=== PATIENT | female | born 1985 | race Caucasian/White ===

== ENCOUNTER 2016-08-13 16:47 | Emergency (ER) | payer OTHER ==
[~2016-08-13] VITALS: Wt 71.0 kg
[2016-08-13] MEDS ORDERED: ACETAMINOPHEN/CODEINE #3 TAB PO ONE (18:00)
[2016-08-13] MEDS ORDERED: IBUPROFEN 600 MG TAB PO ONE (18:00)
--- NOTE | 2016-08-13 18:37 | RADRPT ---
PROCEDURE: Left knee x-ray CLINICAL INDICATION: Pain. TECHNIQUE: AP, lateral and oblique views of the left knee were obtained. COMPARISON: None FINDINGS: There is normal mineralization. No acute fracture or dislocation is seen. There are no significant degenerative changes. There is no joint effusion. There is no significant soft tissue swelling. IMPRESSION: Normal x-ray of the left knee. RPTAT:AAJJ Physician Jacob Date Time Electronically viewed and signed by Cl Bosch Physician on 08/13/2016 18:37 ERASTO/
[2016-08-13] MEDS ORDERED: IBUP-1542 PO (19:15)
--- NOTE | 2016-08-13 19:19 | ERD ---
ER Documentation Chief Complaint Date/Time DATE: 08/13/16 TIME: 19:17 Chief Complaint LEFT KNEE PAIN AFTER FALL TODAY HPI This 30-year-old female complains of left knee pain while sitting today. Pain is in the infrapatellar area. She felt a pop. But no fall or significant awkward movement. She denies fevers, redness, calf swelling, shortness of breath, restricted range of motion or weakness. She initially had some difficulty extending her left knee but now is able although with some discomfort. ROS All systems reviewed and are negative except as per history of present illness. Medications Home Meds Active Scripts Ibuprofen* (Motrin*) 600 Mg Tab, 600 MG PO Q6H Y for PAIN, #20 TAB Prov:MANI CHERRY MD 08/13/16 Allergies Allergies: Coded Allergies: No Known Drug Allergy (Unverified Allergy, Unknown, 05/15/14) PMhx/Soc Medical and Surgical Hx: pt denies Medical Hx, pt denies Surgical Hx History of Surgery: No Hx Neurological Disorder: No Hx Respiratory Disorders: No Hx Cardiac Disorders: No Hx Miscellaneous Medical Probl: No Hx Alcohol Use: No Hx Substance Use: No Hx Tobacco Use: No Physical Exam Vitals Vital Signs Date Time Temp Pulse Resp B/P Pulse Ox O2 Delivery O2 Flow Rate FiO2 08/13/16 16:50 98.0 97 18 128/69 98 Physical Exam Const: [] Alert, [id number] per Head: Atraumatic Eyes: Normal Conjunctiva ENT: Normal External Ears, Nose and Mouth. Neck: Full range of motion..~ No meningismus. Resp: Clear to auscultation bilaterally Cardio: Regular rate and rhythm, no murmurs Abd: Soft, non tender, non distended. Normal bowel sounds Skin: No petechiae or rashes Back: No midline or flank tenderness Ext: No cyanosis, or edema. Is some mild tenderness in the left infrapatellar area. There is no effusion, erythema, warmth, deformities. There is no calf swelling or Homans sign. Neur: Awake and alert Psych: Normal Mood and Affect Results 24 hrs Current Medications Medications (Trade) Dose Ordered Sig/[place] Route PRN Reason Start Time Stop Time Status Last Admin Dose Admin Ibuprofen (Motrin) 600 mg ONCE ONCE PO 08/13/16 18:00 08/13/16 18:01 DC 08/13/16 17:44 Acetaminophen/ Codeine Phosphate (Tylenol No.3) 1 tab ONCE ONCE PO 08/13/16 18:00 08/13/16 18:01 DC 08/13/16 17:44 Procedures/MDM X-ray left knee 3V Interpreted by me: Bones: No fracture Joints: No dislocation Foreign body: None. Impression abnormal left knee x-ray Patient was given ibuprofen and Tylenol 3 for pain. Patient has left knee pain of uncertain etiology, possibly a sprain or tendinitis or possibly a patellar subluxation with normal exam currently. She will discharged home with a prescription of ibuprofen, instructions for ice, instructed to follow-up with primary doctor for possible orthopedic evaluation. There is no evidence of fracture, dislocation, septic arthritis, osteomyelitis, additional emergent conditions the patient should return for fevers, redness, new worsening symptoms. Departure Diagnosis: Primary Impression: Knee injury Encounter type: initial encounter Laterality: left Qualified Code: S89.92XA - Knee injury, left, initial encounter Condition: Stable Patient Instructions: Knee Pain, Uncertain Cause Additional Instructions: X-ray normal. Likely sprain of tendon or muscle. Recommend ice at home. See primary doctor and possible orthopedist for pain next week. Return sooner for fevers, redness, new symptoms MANI CHERRY MD Aug 13, 2016 19:19
[2016-08-13 19:30] VITALS: BP 131/74; PULSE 69; RESP 16
== END 2016-08-13 19:32 | disposition home or self-care (01) ==
LOC: FTE 16:47
DX: S89.92XA Unspecified injury of left lower leg, initial encounter (principal); X50.9XXA Other and unspecified overexertion or strenuous movements or postures, initial encounter; Y92.9 Unspecified place or not applicable
CPT/HCPCS: 29505; 73564; Z7502; Z7610